=== PATIENT | male | born 1960 | race Caucasian/White ===

== ENCOUNTER → 2017-09-30 | Outpatient (CLI) | payer BC ==
--- NOTE | 2017-09-30 13:00 | PCVCIMAG ---
APPROVED REPORT Exam: Stress Echocardiogram Indication: Ischemic cardiomyopathy, Cad, Stent, Hypertension, Hyperlipidemia Patient Location: Echo lab Stress Nurse: Yolanda Bass RN Status: routine Ht: 5 ft 11 in HR: 93 bpm BP: 110/80 mmHg Rhythm: Pacemaker Medical History Medical History: CAD, Stent. ischemic cardiomypathy, htn, hyperlipidemia Procedure The patient underwent an Exercise Stress Test using the Lonnie Protocol. Blood pressure, heart rate, and EKG were monitored. An Echocardiogram was performed by electrical controls technician in four stages in quad fashion. At peak stress, four selected images were obtained and placed side by side with resting images for comparison. Stress Test Details Stress Test: Exercise stress testing was performed using a Lonnie protocol. HR Resting HR: 93 bpmMax Heart Rate (APMHR): 162 bpm Max HR Achieved: 148 bpmTarget HR (85% APMHR): 137 bpm % of APMHR: 91 HR response to stress: Normal HR response to stress BP Resting BP: 110/80 mmHg Max BP: 148/80 mmHg ECG Resting ECG: Paced Rhythm Stress ECG: Paced Rhythm, PVC's, Incompete right bundle Arrhythmia: VPC's Clinical Reason for Termination: Maximal effort Exercise duration: 11 min sec Highest Stage Achieved: Stage 4: 4.2 mph at 16% grade. Exercise capacity: 13.70 METs Overall Exercise Capacity for Age: Normal Pre-Stress Echo The resting Echocardiogram showed abnormal left ventricular contractility with an estimated Ejection Fraction of about 45-50%. Mild hypokinesis distal septum apex. Post-Stress Echo The stress Echocardiogram showed normal left ventricular contractility with an estimated Ejection Fraction of about 50-55%. Mild hypokinesis distal septum apex. Conclusion Clinical Response: Non-ischemic Exercise Capacity: Average Stress ECG Response: Non-ischemic Stress Echo Images: Non-ischemic Other Information Study Quality: Good Critical Notification Critical Value: No
== END | disposition home or self-care (01) ==
LOC: PCVCIMAG 10:17
PROVIDERS: ATTEND Internal Medicine Cardiovascular Disease
DX: I25.5 Ischemic cardiomyopathy (principal); I25.10 Atherosclerotic heart disease of native coronary artery without angina pectoris; I10 Essential (primary) hypertension; E78.5 Hyperlipidemia, unspecified; Z95.5 Presence of coronary angioplasty implant and graft
CPT/HCPCS: 93325; 93351

== ENCOUNTER → 2018-05-13 | Outpatient (CLI) | payer BC ==
[~2018-05-13] MED LIST: REGADENOSON 0.4 MG/5 ML DISP.SYRIN. IV
== END | disposition home or self-care (01) ==
LOC: PCVCIMAG 07:59
DX: I10 Essential (primary) hypertension (principal); I07.1 Rheumatic tricuspid insufficiency; I25.10 Atherosclerotic heart disease of native coronary artery without angina pectoris; I42.9 Cardiomyopathy, unspecified
CPT/HCPCS: 78452; 93017; 93306; A9500; J2785